=== PATIENT | male | born 1970 | race Caucasian/White ===

== ENCOUNTER → 2019-03-10 | Day surgery (SDC) | payer OTHER | END | disposition home or self-care (01) | LOC: JRADIR 13:27 | PROVIDERS: ATTEND Specialist | PROC: 0W9G3ZZ Drainage of Peritoneal Cavity, Percutaneous Approach (ICD-10-PCS; principal; 2019-03-10) | PROC: BW40ZZZ Ultrasonography of Abdomen (ICD-10-PCS; 2019-03-10) | DX: R18.8 Other ascites (principal) | CPT/HCPCS: 76942-TC ==